=== PATIENT | female | born 1960 | race Caucasian/White ===

== ENCOUNTER 2020-05-25 08:31 | Emergency (ER) | payer BC, SELFPAY ==
[2020-05-25 08:39] VITALS: BP 183/89; PULSE 80; RESP 16; TEMP 36.6; O2SAT 97; BMI 31.0
--- NOTE | 2020-05-25 09:12 | ED_ITS ---
HPI - Back Pain/Injury General Chief Complaint: Back Pain/Injury Stated Complaint: pinched nerve on left hip x30 days Time Seen by Provider: 05/25/20 08:35 Source: patient Mode of arrival: Ambulatory Limitations: no limitations History of Present Illness HPI Narrative: 59-year-old female with several months of left lower back/left buttock discomfort. She states she has not been evaluated by anyone for this. She states that yesterday it suddenly became worse. She is unsure as when she was doing at the time. She now has radiation down to the front of her left leg. No urinary symptoms. No change in bowel habits. No fevers. No recent instrumentation. Has not tried anything for her symptoms. There was not any trauma. Related Data Previous Rx's Medication Instructions Recorded cyclobenzaprine 10 mg PO TID PRN #12 tab 05/25/20 hydrocodone-acetaminophen [Surfside] 1 tab PO Q6H PRN #6 tab 05/25/20 Review of Systems Constitutional Constitutional: Denies fever(s) Cardiovascular Cardiovascular: Denies chest pain and Denies dyspnea Respiratory Respiratory: Denies dyspnea Gastrointestinal Gastrointestinal: Denies abdominal pain Genitourinary Genitourinary: Denies dysuria, Denies urinary hesitancy and Denies urinary urgency Genitourinary: Denies dysuria, Denies urinary hesitancy and Denies urinary urgency Musculoskeletal Musculoskeletal: Reports back pain, Denies muscle weakness, Reports numbness, Reports radiating pain into limb, Reports stiffness and Reports tingling Integumentary/Breasts Skin/Breast: Denies rash Neurologic Neurologic: Reports numbness, Reports tingling and Reports paresthesias Hematologic/Lymphatic Hematologic/Lymphatic: Denies easy bleeding and Denies easy bruising Allergic/Immunologic Allergic/Immunologic: Denies urticaria Patient History Medical History Back pain (Acute) Social History Smoking Status: Former smoker Smoking Status: Former smoker alcohol intake frequency: holidays/special occasions only Substance Use Type: does not use Exam Initial Vital Signs Initial Vital Signs: Vital Signs Temperature 97.9 F 05/25/20 08:39 Pulse Rate 80 05/25/20 08:39 Respiratory Rate 16 10/07/20 08:39 Blood Pressure 183/89 H 05/25/20 08:39 Pulse Oximetry 97 05/25/20 08:39 Const General: cooperative and comfortable Limitations: mental status not altered HENMT Head: normal to inspection and normocephalic Resp Effort & Inspection: normal respiratory effort Cardio Rate: regular rate Back/Spine/Pelvis Thoracic/Lumbar Spine: paraspinal tenderness (Left-sided lumbar), No thoracic spinal tenderness and No lumbar spinal tenderness Sacroiliac Joints: tender to palpation left Skin Lesions: no lesions Rashes: no rashes Neuro Sensory Exam: lower extremity (Left-sided anterior thigh decreased sensation compared to right) Extrem General: normal to inspection and capillary refill normal Psych Appearance: grossly normal and well kempt Course Orders Ordered: Discontinued Medications Ketorolac Tromethamine (Toradol) 30 mg IM NOW ONE Stop: 05/25/20 09:13 Last Admin: 05/25/20 09:30 Dose: 30 mg Documented by: MMINOR Vital Signs Vital signs: Vital Signs - 8 hr 05/25/20 08:39 Temperature 97.9 F Pulse Rate 80 Respiratory Rate 16 Blood Pressure 183/89 H Pulse Oximetry 97 MDM - Back Pain/Injury MDM Narrative Medical decision making narrative: Patient without symptoms that make me concerned for cauda equina. No trauma so I have low suspicion for fracture. She has not tried anything for her symptoms. She is relatively benign exam. She was given Toradol. We did discuss treatments she can do at home. She is going to follow-up with her primary doctor to discuss further workup. Will send home with symptom treatment as well. She was given strict return precautions and follow-up instructions. She expressed understanding and agreement. Discharge Plan Departure Patient Disposition: Home Clinical Impression: Acute back pain with radiculopathy Instructions: DI for Back Pain With Sciatica Activity Restrictions/Additional Instructions: recommend you contact your primary care provider to discuss further workup and to discuss the indications for an MRI. take all of the medications as directed. Tomorrow recommend you start on an anti-inflammatories such as motrin or Naprosyn. return to the er for any new symptoms. Prescriptions: New cyclobenzaprine 10 mg tablet 10 mg PO TID PRN (Reason: muscle spasm) Qty: 12 RF: 0 hydrocodone-acetaminophen [Surfside] 5-325 mg tablet 1 tab PO Q6H PRN (Reason: pain) Qty: 6 RF: 0 Referrals: Tristin Campbell [Primary Care Provider] -
[2020-05-25] MEDS: KETOROLAC 60 MG/2 ML VIAL 30 MG IM (09:30)
[2020-05-25 09:50] VITALS: BP 142/90; PULSE 86; RESP 18; O2SAT 96
== END 2020-05-25 09:52 | disposition home or self-care (01) ==
PROVIDERS: Emergency Provider Emergency Medicine; PCP Family Medicine
DX: R20.2 Paresthesia of skin (principal); M54.16 Radiculopathy, lumbar region
CPT/HCPCS: 96372; 99283; J1885